=== PATIENT | male | born 1995 | race Caucasian/White ===

== ENCOUNTER 2017-07-21 23:59 | Emergency (ER) | payer MEDICAID, OTHER ==
[~2017-07-21] VITALS: Ht 188 cm; Wt 68.0 kg
[2017-07-22 00:18] VITALS: BP 128/88
[2017-07-22] MEDS ORDERED: ceFAZolin IM 1GM/2.5ML STERILE WATER IM ONE (02:45)
[2017-07-22] MEDS ORDERED: SILVER SULFADIAZINE 1 % TOPICAL CREAM 50GM TOP ONE ×2 (03:00→03:15)
[2017-07-22] MEDS ORDERED: ceFAZolin 1GM VL ONE (03:17)
[2017-07-22] MEDS ORDERED: cefTRIAXone SOD 1,000 MG VL ONE (03:30)
[2017-07-22] MEDS ORDERED: cefTRIAXone SOD 1,000 MG VL IM ONE (03:30)
== END 2017-07-22 03:45 | disposition home or self-care (01) ==
LOC: ER 07-22 00:07
DX: T23.221A Burn of second degree of single right finger (nail) except thumb, initial encounter (principal); Z88.0 Allergy status to penicillin; X19.XXXA Contact with other heat and hot substances, initial encounter; Y99.8 Other external cause status; Y93.89 Activity, other specified; Y92.89 Other specified places as the place of occurrence of the external cause
CPT/HCPCS: 16020; 96372; 99284; J0690; J0696